=== PATIENT | female | born 1990 | race Caucasian/White ===

== ENCOUNTER 2021-12-23 13:36 | Emergency (ER) | payer BC, OTHER ==
[2021-12-23 15:29] LABS: Urine Blood 2+ (Negative); Urine Glucose Negative (Negative); Urine Protein 1+ (Negative); Urine Specific Gravity 1.025 (1.005-1.030); Urine pH 5.5 (5.0-7.0)
[2021-12-23 15:44] LABS: Urine Specific Gravity/Preg 1.025 (1.005-1.030)
[2021-12-23 15:51] LABS: Absolute Lymphocytes (CBC) 1.4 K/uL (0.7-4.9); Hematocrit 45.1 % (36.0-45.0); MPV 8.2 fL (7.6-11.3); RBC Red Blood Cell Count 4.95 M/uL (3.86-4.86)
[2021-12-23 16:02] LABS: Urine Bacteria LOADED /HPF (<20); Urine RBC <5 /HPF (NONE SEEN)
[2021-12-23] MEDS ORDERED: ACETAMINOPHEN 500 MG TAB ONE (16:02)
[2021-12-23] MEDS ORDERED: NA CHLORIDE 0.9% 1,000 ML ONE (16:02)
[2021-12-23] MEDS ORDERED: ONDANSETRON 4 MG/2 ML VIAL ONE (16:02)
[2021-12-23] MEDS ORDERED: NA CHLORIDE 0.9% 100 ML IV ONE (16:02)
[2021-12-23] MEDS ORDERED: CEFTRIAXONE 1000 MG/VIAL ONE (16:02)
[2021-12-23 16:11] LABS: Bilirubin Total 0.7 mg/dL (0.2-1.0); Potassium 3.7 mmol/L (3.5-5.1); Protein, Total 8.5 g/dL (6.4-8.2)
--- NOTE | 2021-12-23 17:02 | RAD REPORT ---
EXAM DESCRIPTION: CTStone Protocol - 12/23/2021 4:39 pm CLINICAL HISTORY: Flank pain, kidney stone suspected COMPARISON: No comparisons TECHNIQUE: CT of the abdomen and pelvis was performed. All CT scans are performed using dose optimization technique as appropriate and may include automated exposure control or mA/KV adjustment according to patient size. FINDINGS: Lower chest: Breast prostheses. Liver: No acute abnormality or suspicious lesions. Biliary: Dense contents within the gallbladder may reflect inspissated bile. No pericholecystic infla mmatory changes are identified. Stomach: No significant focal abnormality. Duodenum: No significant focal abnormality. Pancreas: No significant abnormality. Spleen: No significant abnormality. Adrenal: No suspicious lesions. Kidney/ureter: Mild stranding along the course of the right ureter. No stones are identified. No hydr onephrosis is seen. Retroperitoneum: No retroperitoneal adenopathy. Vascular: No aneurysm. Bowel: No significant focal abnormality. Normal appendix. Peritoneum: No ascites or free air. Bladder: Grossly unremarkable. Reproductive: No adnexal masses. Bones: No acute fracture. Other: n/a IMPRESSION: No acute intra-abdominal or pelvic finding. Normal appendix. Mild right-sided periureter ic stranding could be secondary to either ascending urinary tract infection or possibly recently pass ed stone. No hydronephrosis.
--- NOTE | 2021-12-23 17:19 | EDPHYS ---
Physician Documentation [facility] Name: Fanny Andino Age: 31 yrs Sex: Female : 1990 Arrival Date: 12/23/2021 Time: 13:37 Bed Treatment Private MD: ED Physician Jak Yuen HPI: 12/23 15:05 This 31 yrs old Female presents to ER via Ambulatory with complaints of Back Pain, cp Flank Pain. 15:05 The patient presents with pain that is acute, with no known mechanism of injury. The cp symptoms are located in the right low back. Onset: The symptoms/episode began/occurred today. The pain radiates to the right flank. Associated signs and symptoms: Pertinent positives: dysuria, fever, Pertinent negatives: constipation, headache, incontinence, numbness, urinary retention, vomiting, weakness. Severity of symptoms: in the emergency department the symptoms are unchanged, despite home interventions. The patient has been recently seen by a physician: Thien, with similar presenting complaints, and was sent to the [facility] Emergency Department for further evaluation. Historical: - Allergies: 14:10 No Known Allergies; ap3 - Home Meds: 14:10 None [Active]; ap3 - PMHx: 14:10 None; ap3 - PSHx: 14:10 momkerline make over-May 2021; ap3 - Immunization history:: Client reports receiving the 2nd dose of the Covid vaccine. - Social history:: Smoking status: Patient denies any tobacco usage or history of. ROS: 15:10 Constitutional: Positive for fever, Negative for poor PO intake. cp 15:10 Cardiovascular: Negative for chest pain, edema, palpitations. cp 15:10 Respiratory: Negative for cough, shortness of breath, wheezing. 15:10 Abdomen/GI: Negative for abdominal pain, vomiting, diarrhea, constipation. 15:10 Back: Positive for pain at rest, pain with movement, of the right low back. 15:10 : Positive for urinary symptoms, Negative for vaginal bleeding, vaginal discharge. 15:10 Neuro: Negative for altered mental status, dizziness, headache, weakness. 15:10 All other systems are negative. Exam: 15:15 Head/Face: Normocephalic, atraumatic. cp 15:15 Constitutional: The patient appears in no acute distress, alert, awake, non-toxic, well developed, well nourished. 15:15 Eyes: Periorbital structures: appear normal, Conjunctiva: normal, no exudate, no injection, Sclera: no appreciated abnormality, Lids and lashes: appear normal, bilaterally. 15:15 ENT: External ear(s): are unremarkable, Nose: is normal, Mouth: Lips: moist, Oral mucosa: moist, Posterior pharynx: Airway: no evidence of obstruction, patent. 15:15 Neck: ROM/movement: is normal, is supple, without pain, no range of motions limitations. 15:15 Chest/axilla: Inspection: normal. 15:15 Cardiovascular: Rate: normal, Rhythm: regular. 15:15 Respiratory: the patient does not display signs of respiratory distress, Respirations: normal, no use of accessory muscles, no retractions, labored breathing, is not present, Breath sounds: are clear throughout, no decreased breath sounds, no stridor, no wheezing. 15:15 Abdomen/GI: Inspection: abdomen appears normal, Bowel sounds: active, all quadrants, Palpation: soft, in all quadrants, mild abdominal tenderness, in the posterior aspect of right lateral abdomen and anterior aspect of right lateral abdomen, rebound tenderness, is not appreciated, involuntary guarding, is not appreciated. 15:15 Back: pain, that is mild, of the right low back, ROM is normal. 15:15 Skin: cellulitis, is not appreciated, no rash present. 15:15 Neuro: Orientation: to person, place \T\ time. Mentation: is normal, Motor: moves all fours, strength is normal, Sensation: is normal, Gait: is steady, at a normal pace, without difficulty. Vital Signs: 14:08 BP 138 / 88; Pulse 89; Temp 101.2; Pulse Ox 100% ; Weight 82.55 kg; Height 5 ft. 3 in. ap3 (160.02 cm); 14:08 Weight 82.55 kg; Height 5 ft. 3 in. (160.02 cm); ap3 17:26 BP 114 / 67; Pulse 85; Resp 16; Temp 99.0(O); Pulse Ox 97% on R/A; jb4 14:08 Body Mass Index 32.24 (82.55 kg, 160.02 cm) ap3 MDM: 15:43 Patient medically screened. cp 16:00 Differential diagnosis: Cholelithiasis Pyelonephritis UTI, sepsis. 17:18 Data reviewed: vital signs, nurses notes, lab test result(s), radiologic studies, CT cp scan. 17:18 Counseling: I had a detailed discussion with the patient and/or guardian regarding: the cp historical points, exam findings, and any diagnostic results supporting the discharge/admit diagnosis, lab results, radiology results, the need for outpatient follow up, a family practitioner, to return to the emergency department if symptoms worsen or persist or if there are any questions or concerns that arise at home. Response to treatment: the patient's symptoms have markedly improved after treatment, and as a result, I will discharge patient. 12/23 15:03 Order name: CBC with Diff; Complete Time: 17:03 12/23 17:03 Interpretation: Normal except: WBC 16.1; RBC 4.95; HGB 15.1; HCT 45.1; LUIS% 79.0; LYM% cp 9.0; NEUT A 12.7; MNA 1.8. 12/23 15:03 Order name: CMP; Complete Time: 17:03 12/23 17:05 Interpretation: Normal except: NA 134; GFR 76; TP 8.5; GLOB 4.5; A/G 0.9. 12/23 15:03 Order name: Lipase; Complete Time: 17:03 12/23 15:03 Order name: Urine Microscopic Only; Complete Time: 17:03 12/23 17:04 Interpretation: Normal except: UWBC 20-50; UBACT LOADED; SQEPI 5-10. 12/23 15:29 Order name: Urine Dipstick-Ancillary; Complete Time: 15:43 EDDC 12/23 15:43 Interpretation: Reviewed. 12/23 15:30 Order name: Urine --Ancillary (enter results); Complete Time: 17:03 bd 12/23 15:03 Order name: IV Saline Lock; Complete Time: 15:51 12/23 15:03 Order name: Labs collected and sent; Complete Time: 15:51 12/23 15:03 Order name: CT Stone Protocol; Complete Time: 17:05 12/23 17:05 Interpretation: Report reviewed. 12/23 16:05 Order name: Urine Culture EDDC 12/23 15:03 Order name: Urine Dipstick-Ancillary (obtain specimen); Complete Time: 15:51 cp 12/23 15:03 Order name: Urine Test (obtain specimen); Complete Time: 15:51 cp 12/23 17:06 Order name: PO challenge; Complete Time: 17:22 cp 12/23 17:11 Order name: Vital Signs; Complete Time: 17:23 cp Administered Medications: 16:06 Drug: Rocephin - (cefTRIAXone) 1 grams Route: IVPB; Infused Over: 30 mins; Site: left jb4 antecubital; 17:23 Follow up: Response: No adverse reaction; IV Status: Completed infusion jb4 16:07 Drug: NS 0.9% 1000 ml Route: IV; Rate: 1 bolus; Site: left antecubital; jb4 16:07 Not Given (Patient Refused): Zofran (Ondansetron) 4 mg IVP once; over 2 minutes jb4 16:08 Drug: Tylenol 1000 mg Route: PO; jb4 Disposition: 22:01 Co-signature as Attending Physician, Jak WHITE was immediately available on-site ms3 in the Emergency Department for consultation in the care of the patient. . Disposition Summary: 12/23/21 17:18 Discharge Ordered Location: Home cp Problem: new cp Symptoms: have improved cp Condition: Stable cp Diagnosis - UTI/ Urinary tract infection, site not specified cp Followup: cp - With: Private Physician - When: 1 - 2 days - Reason: Recheck today's complaints Discharge Instructions: - Discharge Summary Sheet cp - Urinary Tract Infection, Adult cp Forms: - Medication Reconciliation Form cp - Thank You Letter cp - Antibiotic Education cp - Prescription Opioid Use cp Prescriptions: - Ibuprofen 800 mg Oral Tablet - take 1 tablet by ORAL route every 8 hours As needed take with food; 30 tablet; cp Refills: 0, Product Selection Permitted - Zofran 4 mg Oral Tablet - take 1 tablet by ORAL route every 12 hours As needed; 20 tablet; Refills: 0, cp Product Selection Permitted - Bactrim DS 800-160 mg Oral Tablet - take 1 tablet by ORAL route every 12 hours for 10 days; 20 tablet; Refills: 0, cp Product Selection Permitted Signatures: Dispatcher [employer] EDDC Kyle Sigala PA PA cp Nehemiah Zarate RN RN jb4 Monica Carrero RN RN ap3 YuenJak DO DO ms3 Corrections: (The following items were deleted from the chart) 17:05 17:05 Normal except: NA 134; GFR 76. cp cp 12/24 00:12/22 15:15 Constitutional: The patient appears in no acute distress, alert, awake, cp non-toxic, well developed, well nourished, cp 12/24 00:12/22 15:15 Head/Face: Normocephalic, atraumatic. cp cp 12/24 00:12/22 15:15 Eyes: Periorbital structures: appear normal, Conjunctiva: normal, no cp exudate, no injection, Sclera: no appreciated abnormality, Lids and lashes: appear normal, bilaterally, cp 12/24 00:12/22 15:15 ENT: External ear(s): are unremarkable, Nose: is normal, Mouth: Lips: cp moist, Oral mucosa: moist, Posterior pharynx: Airway: no evidence of obstruction, patent, cp 12/24 00:12/22 15:15 Neck: ROM/movement: is normal, is supple, without pain, no range of motions cp limitations, cp 12/24 00:12/22 15:15 Chest/axilla: Inspection: normal, cp cp 12/24 00:12/22 15:15 Cardiovascular: Rate: normal, Rhythm: regular, cp cp 12/24 00:12/22 15:15 Respiratory: the patient does not display signs of respiratory distress, cp Respirations: normal, no use of accessory muscles, no retractions, labored breathing, is not present, Breath sounds: are clear throughout, no decreased breath sounds, no stridor, no wheezing, cp 12/24 00:12/22 15:15 Abdomen/GI: Inspection: abdomen appears normal, Bowel sounds: active, all cp quadrants, Palpation: soft, in all quadrants, mild abdominal tenderness, in the posterior aspect of right lateral abdomen and anterior aspect of right lateral abdomen, rebound tenderness, is not appreciated, involuntary guarding, is not appreciated, cp 12/24 00:12/22 15:15 Back: pain, that is mild, of the right low back, ROM is normal, cp cp 12/24 00:12/22 15:15 Skin: cellulitis, is not appreciated, no rash present. cp cp 12/24 01:40 12/22 15:15 Neuro: Orientation: to person, place \T\ time. Mentation: is normal, Motor: cp moves all fours, strength is normal, Sensation: is normal, Gait: is steady, at a normal pace, without difficulty, cp
--- NOTE | 2021-12-23 17:19 | ER ---
Nurse's Notes [facility] Name: Fanny Andino Age: 31 yrs Sex: Female : 1990 Arrival Date: 12/23/2021 Time: 13:37 Bed Treatment Private MD: Diagnosis: UTI/ Urinary tract infection, site not specified Presentation: 12/23 14:08 Chief complaint: Patient states: she has a dull pain on her right lower back/right ap3 flank area. Patient states she did teledoc and was informed to come to the ED for further evaluation. Coronavirus screen: Client presents with at least one sign or symptom that may indicate coronavirus-19. Ebola Screen: No symptoms or risks identified at this time. Initial Sepsis Screen: Does the patient meet any 2 criteria? Temp <36.0*C (96.8*F)) or > 38.3*C (100.9*F). Does the patient have a suspected source of infection? No. Patient's initial sepsis screen is negative. Risk Assessment: Do you want to hurt yourself or someone else? Patient reports no desire to harm self or others. Onset of symptoms was December 23, 2021. 14:08 Method Of Arrival: Ambulatory ap3 14:08 Acuity: VERONICA 3 ap3 Triage Assessment: 14:11 General: Appears in no apparent distress. Behavior is calm, cooperative, appropriate ap3 for age. Pain: Complains of pain in low back area Quality of pain is described as dull, Pain began gradually, 4 hours ago. Neuro: Level of Consciousness is awake, alert, obeys commands, Oriented to person, place, time, situation, Gait is steady. Cardiovascular: Patient's skin is warm and dry. Respiratory: Airway is patent Respiratory effort is even, unlabored. : Reports pain in right flank(s). Musculoskeletal: Range of motion: intact in all extremities. Historical: - Allergies: 14:10 No Known Allergies; ap3 - Home Meds: 14:10 None [Active]; ap3 - PMHx: 14:10 None; ap3 - PSHx: 14:10 momkerline pritchard over-May 2021; ap3 - Immunization history:: Client reports receiving the 2nd dose of the Covid vaccine. - Social history:: Smoking status: Patient denies any tobacco usage or history of. Screenin:12 Abuse screen: Denies threats or abuse. Nutritional screening: No deficits noted. ap3 Tuberculosis screening: No symptoms or risk factors identified. 15:40 Fall Risk None identified. jb4 Assessment: 15:40 General: Appears in no apparent distress. uncomfortable, Behavior is calm, cooperative, jb4 appropriate for age. Pain: Complains of pain in right low back Pain radiates to right lower quadrant. Neuro: Level of Consciousness is awake, alert, obeys commands, Oriented to person, place, time, situation. Cardiovascular: Patient's skin is warm and dry. Respiratory: Airway is patent Respiratory effort is even, unlabored, Respiratory pattern is regular, symmetrical. Derm: Skin is intact, Skin is pink, warm \T\ dry. 17:27 Reassessment: Patient appears in no apparent distress at this time. Patient and/or jb4 family updated on plan of care and expected duration. Pain level reassessed. Patient is alert, oriented x 3, equal unlabored respirations, skin warm/dry/pink. Vital Signs: 14:08 BP 138 / 88; Pulse 89; Temp 101.2; Pulse Ox 100% ; Weight 82.55 kg; Height 5 ft. 3 in. ap3 (160.02 cm); 14:08 Weight 82.55 kg; Height 5 ft. 3 in. (160.02 cm); ap3 17:26 BP 114 / 67; Pulse 85; Resp 16; Temp 99.0(O); Pulse Ox 97% on R/A; jb4 14:08 Body Mass Index 32.24 (82.55 kg, 160.02 cm) ap3 ED Course: 13:37 Patient arrived in ED. as 13:39 Kyle Sigala PA is PHCP. cp 13:39 Jak Yuen DO is Attending Physician. cp 14:10 Triage completed. ap3 14:12 Patient has correct armband on for positive identification. ap3 14:12 Arm band placed on right wrist. ap3 15:35 Urine collected: clean catch specimen, cloudy. zm 15:41 Initial lab(s) drawn, by me, sent to lab. Inserted saline lock: 20 gauge in left jb4 antecubital area, using aseptic technique. Blood collected. 15:50 Nehemiah Zarate, RAJINDER is Primary Nurse. jb4 16:40 CT Stone Protocol In Process Unspecified. EDMS 17:27 No provider procedures requiring assistance completed. IV discontinued, intact, jb4 bleeding controlled, No redness/swelling at site. Pressure dressing applied. Administered Medications: 16:06 Drug: Rocephin - (cefTRIAXone) 1 grams Route: IVPB; Infused Over: 30 mins; Site: left jb4 antecubital; 17:23 Follow up: Response: No adverse reaction; IV Status: Completed infusion jb4 16:07 Drug: NS 0.9% 1000 ml Route: IV; Rate: 1 bolus; Site: left antecubital; jb4 16:07 Not Given (Patient Refused): Zofran (Ondansetron) 4 mg IVP once; over 2 minutes jb4 16:08 Drug: Tylenol 1000 mg Route: PO; jb4 Medication: 14:12 VIS not applicable for this client. ap3 Outcome: 17:18 Discharge ordered by MD. cp 17:39 Discharged to home ambulatory. jb4 17:39 Condition: stable 17:39 Discharge instructions given to patient, Instructed on discharge instructions, follow up and referral plans. medication usage, Demonstrated understanding of instructions, follow-up care, medications, Prescriptions given X 2. 17:39 Patient left the ED. jb4 Signatures: Dispatcher [employer] EDMS Daisy Colin Corey, PA PA cp Bryson, James, RN RN jb4 Monica Carrero RN RN ap3 Adina Colin
[2021-12-23 17:47] VITALS: BP 114/67; TEMP 99; O2SAT 97
== END 2021-12-23 17:39 | disposition home or self-care (01) ==
LOC: ER 13:36
DX: N39.0 Urinary tract infection, site not specified (principal)
CPT/HCPCS: 96365; 87088; 85025; 87086; 36415; 81025; 87077; 87186; 83690; 80053; 76377; 74176; 99284; J7030; 81003; 81015; J2405